=== PATIENT | male | born 1940 | race Two or more races ===

== ENCOUNTER 2017-11-22 10:02 | Outpatient (CLI) | payer OTHER ==
[~2017-11-22 10:02] MED LIST: ADULT LOW DOSE81 MG; CADUET 5 MG/101 TAB; CATAFLAM50 MG PO; FOLGARD TABLET1 EACH; FOSAMAX5 MG PO; MEDROLPACK PO; NEURONTIN300 MG PO; NEXIUM40 MG/PACK; ORPH100T PO; PERCOCET 5/3251 TAB PO; VOLTAREM
== END 2017-11-22 10:42 | disposition home or self-care (01) ==
LOC: RAD 10:02
DX: N28.1 Cyst of kidney, acquired (principal); N20.0 Calculus of kidney

== ENCOUNTER 2018-09-16 09:15 | Outpatient (CLI) | payer OTHER | END 2018-09-16 09:21 | disposition home or self-care (01) | LOC: RAD 09:15 | DX: N28.1 Cyst of kidney, acquired (principal); N20.0 Calculus of kidney ==

== ENCOUNTER 2019-05-12 07:11 | Outpatient (CLI) | payer OTHER | END 2019-05-12 07:12 | disposition home or self-care (01) | LOC: NUCLEAR 07:11 | DX: D35.1 Benign neoplasm of parathyroid gland (principal); D44.2 Neoplasm of uncertain behavior of parathyroid gland | CPT/HCPCS: 78071; A9500 ==

== ENCOUNTER → 2019-11-07 | Outpatient (CLI) | payer OTHER | END | disposition home or self-care (01) | LOC: RAD 14:50 | DX: N28.1 Cyst of kidney, acquired (principal); N20.0 Calculus of kidney ==

== ENCOUNTER 2020-07-02 05:00 | Outpatient (CLI) | payer OTHER | END 2020-07-02 08:00 | disposition home or self-care (01) | LOC: PPH VACUNA 05:00 | DX: Z23 Encounter for immunization (principal) | CPT/HCPCS: 90688; G0008 ==

== ENCOUNTER → 2020-10-25 | Outpatient (CLI) | payer OTHER | END | disposition home or self-care (01) | LOC: PPH VACUNA 23:30 | PROVIDERS: ATTEND Emergency Medicine Pediatric Emergency Medicine | DX: Z23 Encounter for immunization (principal) ==

== ENCOUNTER 2020-11-20 14:08 | Outpatient (CLI) | payer OTHER | END 2020-11-20 14:35 | disposition home or self-care (01) | LOC: RAD 14:08 | PROVIDERS: ATTEND Specialist | DX: E04.2 Nontoxic multinodular goiter (principal); I70.0 Atherosclerosis of aorta; D09.3 Carcinoma in situ of thyroid and other endocrine glands; I10 Essential (primary) hypertension ==

== ENCOUNTER → 2021-03-07 | Outpatient (CLI) | payer OTHER | END | disposition home or self-care (01) | LOC: RAD 09:06 | PROVIDERS: ATTEND Specialist | DX: N20.0 Calculus of kidney (principal); N28.89 Other specified disorders of kidney and ureter ==

== ENCOUNTER 2021-06-20 08:47 | Outpatient (CLI) | payer OTHER | END 2021-06-20 15:00 | disposition home or self-care (01) | LOC: SONOGRAMA 08:47 | PROVIDERS: ATTEND Urology | DX: N20.0 Calculus of kidney (principal); N28.1 Cyst of kidney, acquired; R31.1 Benign essential microscopic hematuria ==

== ENCOUNTER → 2021-07-02 | Outpatient (CLI) | payer OTHER | END | disposition home or self-care (01) | LOC: RAD 09:30 | PROVIDERS: ATTEND Orthopaedic Surgery | DX: M25.562 Pain in left knee (principal) ==

== ENCOUNTER 2021-07-11 13:32 | Outpatient (CLI) | payer OTHER | END 2021-07-11 13:35 | disposition home or self-care (01) | LOC: NUCLEAR 13:32 | PROVIDERS: ATTEND Orthopaedic Surgery | DX: M81.0 Age-related osteoporosis without current pathological fracture (principal) ==

== ENCOUNTER → 2021-07-24 06:40 | Outpatient (CLI) | payer OTHER | END | disposition home or self-care (01) | LOC: LAB 06:40 | PROVIDERS: ATTEND Orthopaedic Surgery | DX: M85.89 Other specified disorders of bone density and structure, multiple sites (principal); M81.8 Other osteoporosis without current pathological fracture; E56.1 Deficiency of vitamin K; E88.89 Other specified metabolic disorders; E83.42 Hypomagnesemia ==

== ENCOUNTER 2021-07-24 07:44 | Outpatient (CLI) | payer OTHER | END 2021-07-24 07:57 | disposition home or self-care (01) | LOC: MRI 07:44 | PROVIDERS: ATTEND Orthopaedic Surgery | DX: M17.12 Unilateral primary osteoarthritis, left knee (principal); M25.462 Effusion, left knee | CPT/HCPCS: 73721 ==

== ENCOUNTER → 2021-08-04 12:27 | Outpatient (CLI) | payer OTHER ==
[~2021-08-04 12:27] MED LIST changes: +SIMVASTATIN5 MG PO; +SYNTHROID112 MCG PO; +ULTRAM50 MG PO
== END | disposition home or self-care (01) ==
LOC: LAB 12:27
PROVIDERS: ATTEND Orthopaedic Surgery
DX: D64.89 Other specified anemias (principal); B96.29 Other Escherichia coli [E. coli] as the cause of diseases classified elsewhere; E88.89 Other specified metabolic disorders; D68.8 Other specified coagulation defects; N39.0 Urinary tract infection, site not specified; Z22.322 Carrier or suspected carrier of Methicillin resistant Staphylococcus aureus; I49.8 Other specified cardiac arrhythmias; I10 Essential (primary) hypertension; K76.89 Other specified diseases of liver

== ENCOUNTER 2021-08-11 07:05 | Day surgery (SDC) | payer OTHER | END 2021-08-11 16:40 | disposition home or self-care (01) | LOC: CIR.AMB 07:05 | PROVIDERS: ATTEND Orthopaedic Surgery | DX: M23.322 Other meniscus derangements, posterior horn of medial meniscus, left knee (principal); M23.352 Other meniscus derangements, posterior horn of lateral meniscus, left knee; M65.862 Other synovitis and tenosynovitis, left lower leg; M22.42 Chondromalacia patellae, left knee; Z20.822 Contact with and (suspected) exposure to COVID-19 ==

== ENCOUNTER 2021-08-20 10:31 | Outpatient (CLI) | payer OTHER | END 2021-08-20 10:40 | disposition home or self-care (01) | LOC: RAD 10:31 | PROVIDERS: ATTEND Orthopaedic Surgery | DX: M54.2 Cervicalgia (principal); M25.511 Pain in right shoulder; M25.512 Pain in left shoulder; M25.531 Pain in right wrist; M25.532 Pain in left wrist ==

== ENCOUNTER 2021-08-21 07:53 | Outpatient (CLI) | payer OTHER | END 2021-08-21 10:02 | disposition home or self-care (01) | LOC: LAB 07:53 | PROVIDERS: ATTEND Orthopaedic Surgery | DX: D64.89 Other specified anemias (principal); M06.4 Inflammatory polyarthropathy; M13.88 Other specified arthritis, other site ==

== ENCOUNTER → 2021-08-22 11:14 | Outpatient (CLI) | payer OTHER | END | disposition home or self-care (01) | LOC: LAB 11:14 | PROVIDERS: ATTEND Orthopaedic Surgery | DX: J11.1 Influenza due to unidentified influenza virus with other respiratory manifestations (principal); Z20.828 Contact with and (suspected) exposure to other viral communicable diseases; Z03.818 Encounter for observation for suspected exposure to other biological agents ruled out; A90 Dengue fever [classical dengue] ==

== ENCOUNTER 2021-08-22 12:21 | Outpatient (CLI) | payer OTHER | END 2021-08-22 12:31 | disposition home or self-care (01) | LOC: RAD 12:21 | PROVIDERS: ATTEND Orthopaedic Surgery | DX: M25.552 Pain in left hip (principal); M25.551 Pain in right hip ==

== ENCOUNTER 2021-08-29 08:28 | Outpatient (CLI) | payer OTHER | END 2021-08-29 11:04 | disposition home or self-care (01) | LOC: LAB 08:28 | DX: D64.89 Other specified anemias (principal); M32.19 Other organ or system involvement in systemic lupus erythematosus; M06.8A Other specified rheumatoid arthritis, other specified site; B34.8 Other viral infections of unspecified site; M06.4 Inflammatory polyarthropathy ==

== ENCOUNTER 2021-10-20 11:05 | Outpatient (CLI) | payer OTHER | END 2021-10-20 11:12 | disposition home or self-care (01) | LOC: TOM 11:05 | PROVIDERS: ATTEND Internal Medicine Cardiovascular Disease | DX: R00.2 Palpitations (principal) ==

== ENCOUNTER 2021-10-20 12:21 | Outpatient (CLI) | payer OTHER | END 2021-10-20 12:26 | disposition home or self-care (01) | LOC: LAB 12:21 | PROVIDERS: ATTEND Internal Medicine Cardiovascular Disease | DX: E11.9 Type 2 diabetes mellitus without complications (principal); E03.8 Other specified hypothyroidism ==

== ENCOUNTER 2021-10-22 08:00 | Outpatient (CLI) | payer OTHER | END 2021-10-22 08:01 | disposition home or self-care (01) | LOC: NUCLEAR 08:00 | PROVIDERS: ATTEND Internal Medicine Cardiovascular Disease | DX: I47.1 Supraventricular tachycardia (principal) ==

== ENCOUNTER 2021-10-31 07:20 | Outpatient (CLI) | payer OTHER | END 2021-10-31 07:21 | disposition home or self-care (01) | LOC: NUCLEAR 07:20 | PROVIDERS: ATTEND Internal Medicine Cardiovascular Disease | DX: I25.5 Ischemic cardiomyopathy (principal); R07.89 Other chest pain; I50.1 Left ventricular failure, unspecified | CPT/HCPCS: 78452; 93017; A9500; J0153 ==

== ENCOUNTER 2022-01-19 08:00 | Outpatient (CLI) | payer OTHER | END 2022-01-19 08:30 | disposition home or self-care (01) | LOC: PPH VACUNA 08:00 | PROVIDERS: ATTEND Emergency Medicine Pediatric Emergency Medicine | DX: Z23 Encounter for immunization (principal) ==

== ENCOUNTER 2022-03-31 10:27 | Inpatient (IN) | payer OTHER ==
[~2022-03-31] VITALS: Ht 177.8 cm; Wt 77.1 kg
[2022-04-03] MEDS ORDERED: XARELTO10 MG PO (11:58)
[2022-04-03] MEDS ORDERED: ULTRAM50 MG PO (11:58)
[2022-04-03] MEDS ORDERED: CELEBREX200MG PO (12:01)
[2022-04-03] MEDS ORDERED: NASAL MIST126 ML NASAL (12:01)
== END 2022-04-04 15:11 | disposition home or self-care (01) | DRG 522 ==
LOC: ER 10:27 → SURH 17:32
PROVIDERS: ADMIT Orthopaedic Surgery; ATTEND Orthopaedic Surgery
PROC: 0SRS0JZ Replacement of Left Hip Joint, Femoral Surface with Synthetic Substitute, Open Approach (ICD-10-PCS; principal; 2022-03-31)
DX: S72.002A Fracture of unspecified part of neck of left femur, initial encounter for closed fracture (principal); W18.30XA Fall on same level, unspecified, initial encounter; Y93.9 Activity, unspecified; E03.9 Hypothyroidism, unspecified; I10 Essential (primary) hypertension; M06.9 Rheumatoid arthritis, unspecified; Z79.52 Long term (current) use of systemic steroids

== ENCOUNTER 2022-07-10 11:11 | Outpatient (CLI) | payer OTHER ==
[~2022-07-10 11:11] MED LIST changes: +CELEBREX200MG PO; +NASAL MIST126 ML NASAL; +XARELTO10 MG PO
[2022-07-13] MEDS ORDERED: LIPITOR40 MG PO (13:37)
[2022-07-13] MEDS ORDERED: NORVASC2.5 M1 PO (13:38)
[2022-07-13] MEDS ORDERED: ZOLOFT25 MG PO (13:38)
== END 2022-07-10 11:12 | disposition home or self-care (01) ==
LOC: SONOGRAMA 11:11
PROVIDERS: ATTEND Orthopaedic Surgery
DX: R31.1 Benign essential microscopic hematuria (principal); N20.0 Calculus of kidney

== ENCOUNTER 2022-07-10 13:36 | Outpatient (CLI) | payer OTHER ==
[2022-07-13] MEDS ORDERED: LIPITOR40 MG PO (13:37)
[2022-07-13] MEDS ORDERED: ZOLOFT25 MG PO (13:38)
[2022-07-13] MEDS ORDERED: NORVASC2.5 M1 PO (13:38)
== END 2022-07-10 13:46 | disposition home or self-care (01) ==
LOC: PPH VACUNA 13:36
PROVIDERS: ATTEND Emergency Medicine Pediatric Emergency Medicine
DX: Z23 Encounter for immunization (principal)

== ENCOUNTER 2022-07-27 12:08 | Outpatient (CLI) | payer OTHER ==
[~2022-07-27 12:08] MED LIST changes: +LIPITOR40 MG PO; +NORVASC2.5 M1 PO; +ZOLOFT25 MG PO
== END 2022-07-27 12:19 | disposition home or self-care (01) ==
LOC: SONOGRAMA 12:08
PROVIDERS: ATTEND Urology
DX: N20.1 Calculus of ureter (principal); R31.1 Benign essential microscopic hematuria

== ENCOUNTER 2022-09-05 09:31 | Outpatient (CLI) | payer OTHER | END 2022-09-05 09:33 | disposition home or self-care (01) | LOC: LAB 09:31 | PROVIDERS: ATTEND Specialist | DX: E11.9 Type 2 diabetes mellitus without complications (principal); E78.00 Pure hypercholesterolemia, unspecified; M35.3 Polymyalgia rheumatica; E11.21 Type 2 diabetes mellitus with diabetic nephropathy; E11.69 Type 2 diabetes mellitus with other specified complication; E03.8 Other specified hypothyroidism; D64.89 Other specified anemias; Z13.220 Encounter for screening for lipoid disorders; N39.9 Disorder of urinary system, unspecified ==

== ENCOUNTER 2022-09-09 07:10 | Outpatient (CLI) | payer OTHER | END 2022-09-09 12:47 | disposition home or self-care (01) | LOC: TOM 07:10 | PROVIDERS: ATTEND Urology | DX: R31.1 Benign essential microscopic hematuria (principal); N28.1 Cyst of kidney, acquired; N20.0 Calculus of kidney ==

== ENCOUNTER 2022-10-14 08:41 | Outpatient (CLI) | payer OTHER | END 2022-10-14 08:52 | disposition home or self-care (01) | LOC: MRI 08:41 | PROVIDERS: ATTEND Specialist | DX: N28.89 Other specified disorders of kidney and ureter (principal) | CPT/HCPCS: 74183; Q9965 ==

== ENCOUNTER 2022-10-14 09:15 | Outpatient (CLI) | payer OTHER | END 2022-10-14 13:31 | disposition home or self-care (01) | LOC: LAB 09:15 | PROVIDERS: ATTEND Radiology Diagnostic Radiology | DX: N28.89 Other specified disorders of kidney and ureter (principal) ==

== ENCOUNTER 2023-03-26 08:10 | Outpatient (CLI) | payer OTHER | END 2023-03-26 08:13 | disposition home or self-care (01) | LOC: NUCLEAR 08:10 | PROVIDERS: ATTEND Internal Medicine | DX: I50.9 Heart failure, unspecified (principal) ==

== ENCOUNTER 2023-06-25 09:13 | Outpatient (CLI) | payer OTHER | END 2023-06-25 09:18 | disposition home or self-care (01) | LOC: LAB 09:13 | PROVIDERS: ATTEND Urology | DX: R31.1 Benign essential microscopic hematuria (principal); N20.0 Calculus of kidney; R97.20 Elevated prostate specific antigen [PSA] ==

== ENCOUNTER 2023-06-25 09:56 | Outpatient (CLI) | payer OTHER | END 2023-06-25 10:02 | disposition home or self-care (01) | LOC: MRI 09:56 | PROVIDERS: ATTEND Urology | DX: N28.1 Cyst of kidney, acquired (principal); N20.0 Calculus of kidney | CPT/HCPCS: 74183; Q9965 ==

== ENCOUNTER 2023-12-30 14:13 | Outpatient (CLI) | payer OTHER | END 2023-12-30 14:14 | disposition home or self-care (01) | LOC: NUCLEAR 14:13 | PROVIDERS: ATTEND Orthopaedic Surgery | DX: M81.0 Age-related osteoporosis without current pathological fracture (principal) ==

== ENCOUNTER 2024-05-19 10:15 | Outpatient (CLI) | payer OTHER | END 2024-05-19 10:18 | disposition home or self-care (01) | LOC: SONOGRAMA 10:15 | PROVIDERS: ATTEND Specialist | DX: N18.32 Chronic kidney disease, stage 3b (principal) ==